=== PATIENT | female | born 1970 | race Caucasian/White ===

== ENCOUNTER → 2024-06-17 07:57 | Outpatient (BNVA) | payer OTHER, SELFPAY | PROVIDERS: Visit Provider Physician Assistant Medical | DX: Z13.89 Encounter for screening for other disorder (principal) | CPT/HCPCS: 92002; 99203 ==

== ENCOUNTER 2024-08-17 14:02 | Outpatient (AMB) | payer OTHER, SELFPAY ==
--- NOTE | 2024-08-17 14:07 | MHC.OFFVIS ---
Vital Signs 08/17/24 14:14 Height 5 ft 5 in Weight 194 lb 7.163 oz BMI 32.4 BP 148/80 H Blood Pressure Location Rt brachial Position Sitting Pulse 106 H Pulse Source Pulse Oximeter Pulse Oximetry (%) 98 Oxygen Delivery Method Room Air Intake Visit Reasons: [facility] screening Intake Note: NEW PATIENT Reason; Initial colo screening Prior hx of colo/egd? None Concerns/Questions? No significant GI concerns. Allergies No Known Allergies Allergy (Unverified 08/17/24 14:13) HPI HPI [facility] screening: Details: 54 year old? female is here today for pre colonoscopy screening.? Patient was sent to us by her PCP.? This is her first colonoscopy screening.? Patient denies any gastrointestinal symptoms in the past or at present.? Denies any personal or family history of gastrointestinal disease, colon polyps, or CRC.? Denies history of difficulty with sedation or anesthesia in the past.? Negative for history of sleep apnea.? Denies any history of cardiac, renal, pulmonary, or hepatic disease.?? No history of infectious? diseases like hepatitis A, B, C, HIV or tuberculosis.? Patient is not on any anticoagulation [facility] Surgical History H/O abdominal surgery History of salpingo-oophorectomy History of total hysterectomy Review of Systems Const Denies weight gain and Denies weight loss ENT Reports no additional complaints, Denies dysphagia and Denies odynophagia Card Reports no additional complaints Resp Reports no additional complaints GI Denies abdominal pain, Denies belching, Denies melena, Denies bloating, Denies change in bowel habits, Denies dysphagia, Denies excessive flatus, Denies dyspepsia, Denies heartburn, Denies diarrhea, Denies loose stools, Denies nausea, Denies odynophagia and Denies vomiting Musc Reports no additional complaints Neuro Reports no additional complaints Psych Reports no additional complaints Endo Reports no additional complaints Physical Exam Vital Signs: Last Vital Signs Pulse 106 H 08/17/24 14:14 BP 148/80 H 08/17/24 14:14 Pulse Ox 98 08/17/24 14:14 Oxygen Delivery Method Room Air 08/17/24 14:14 BMI result Body Mass Index 32.4 Const General: healthy appearing and no acute distress Nutritional Appearance: obese Orientation/consciousness: patient oriented x3 Resp Effort & Inspection: normal respiratory effort, able to speak in complete sentences, no tracheal deviation and symmetric chest movement Auscultation: clear to auscultation bilaterally Cardio Rate: regular rate GI Inspection: Yes normal to inspection, No distended and Yes obesity Palpation (GI): Soft to palpation, not firm, nontender and No hepatosplenomegaly present Auscultation: normal bowel sounds General: Yes no CVA tenderness Back/Spine/Pelvis Back: no CVA tenderness Skin General skin exam: elasticity normal, turgor normal and dry skin Neuro General: patient oriented x3 Psych Appearance: grossly normal Mental Status: mental status grossly normal Assessment & Plan Assessment & Plan (1) Screen for colon cancer: Code(s): Z12.11 - Encounter for screening for malignant neoplasm of colon Plan Patient denies any GI, cardiac or respiratory symptoms.? Denies any issues with anesthesia in the past.? Denies any history of sleep apnea.? No history infectious diseases in the past or present.? Not on any anticoagulation therapy.? No family or personal history of colon cancer or polyps.? Patient denies melena, hematochezia, unintentional weight loss or ribbon like stools.? Discussed at length the pre-procedure,? prep, diet & medications as well as what to expect prior, during and after the procedure.?? Stressed the importance of good bowel prep.? Recommended the use of Vaseline or Calmoseptine OTC & baby wipes with bowel movements to promote comfort.? ?Patient verbalizes understanding and agrees to plan of care.? She was given the opportunity to ask questions and all questions answered.? We will see her after the procedure.? Medications: New polyethylene glycol 3350 (Miralax) As directed by gastroenterology department at [facility] 238 grams PO ONCE 238 grams 0RF Z12.11 - Encounter for screening for malignant neoplasm of colon bisacodyl (Dulcolax (bisacodyl)) take 4 tabs at noon the day before your colonoscopy 20 mg (4 x 5 mg) PO ONCE 4 tabs 0RF 1 day Z12.11 - Encounter for screening for malignant neoplasm of colon Coding Level of Care Code New Pt Level 3 (99283) Diagnoses Screen for colon cancer Z12.11 Time Spent (min) 40 Comment 30 minutes spent with patient and additional 10 minutes spent reviewing her records
[2024-08-17 14:14] VITALS: BP 148/80; PULSE 106; O2SAT 98; BMI 32.4
== END 2024-08-17 15:34 | disposition home or self-care (01) ==
PROVIDERS: Visit Provider Nurse Practitioner Family
DX: Z01.818 Encounter for other preprocedural examination (principal); Z12.11 Encounter for screening for malignant neoplasm of colon
CPT/HCPCS: S0285

== ENCOUNTER → 2024-08-17 14:02 | Outpatient (BNVA) | payer OTHER, SELFPAY | PROVIDERS: Visit Provider Nurse Practitioner Family ==

== ENCOUNTER 2024-10-06 14:19 | Outpatient (AMB) | payer OTHER, SELFPAY ==
--- NOTE | 2024-10-06 14:22 | A.OFFPC_ITS ---
Vital Signs 10/06/24 14:29 Height 5 ft 3.25 in Weight 197 lb BMI 34.6 BP 136/72 Blood Pressure Location Rt brachial Pulse 111 H Pulse Source Pulse Oximeter Temp 97.1 F Pulse Oximetry (%) 96 Intake Visit Reasons: physical Intake Note: no other issues Allergies No Known Allergies Allergy (Verified 10/06/24 15:15) Medication List - Last Reconciled 10/06/24 by Opal Moncada PA-C bisacodyl (Dulcolax (bisacodyl)) 20 mg (4 x 5 mg) PO ONCE 1 day clobetasol 0.025% 1 appl topical BEDTIME clobetasol 0.05% 1 g topical BID multivitamin 1 tab PO DAILY polyethylene glycol 3350 (Miralax) 238 grams PO ONCE PFSH Medical History (Updated 10/06/24 @ 16:50 by Opal Moncada PA-C) Epileptic seizure Lichen sclerosus History of mammogram (~2023) History of ovarian cancer Establishing care with new doctor, encounter for Tachycardia Surgical History (Updated 10/06/24 @ 16:48 by Opal Moncada PA-C) History of hysterectomy H/O abdominal surgery History of salpingo-oophorectomy History of total hysterectomy Physical exam (Primary Care) Vital Signs: Last Vital Signs Temp 97.1 F 10/06/24 14:29 Pulse 111 H 10/06/24 14:29 BP 136/72 10/06/24 14:29 Pulse Ox 96 10/06/24 14:29 Care Plan Goal for BP management: <130/80 at goal BMI result Body Mass Index 34.6 BMI Assessment/Plan discussion: High BMI High, discussed plan: lifestyle, weight reduction, dietary, physical activity and alcohol moderation Office Procedures EKG Details: EKG normal sinus rhythm with a ventricular rate of 102. Normal QRS normal QT/QTC interval. No acute ischemic change are noted. Dr. Gordillo reviewed this EKG and agreed. [id number], Complete Coding Level of Care Code New Pt Prev Care 40-64y(52474) Diagnoses Establishing care with new doctor, encounter for Z76.89 Tachycardia R00.0 Lichen sclerosus L90.0 CPT Codes EKG - CPT: 26091-[id number], Complete ([id number]) Assessment & Plan Assessment & Plan (1) Establishing care with new doctor, encounter for: Code(s): Z76.89 - Persons encountering health services in other specified circumstances Category: Medical Plan: Patient had a normal exam today. (2) Tachycardia: Code(s): R00.0 - Tachycardia, unspecified Category: Medical Plan: Patient has sinus tachycardia. EKG obtained and revealed a ventricular rate of 102 milliseconds. Normal QRS normal QT/QTC interval. No acute ischemic change are noted. Verified with Dr. Gordillo. No STEMI or ischemia was noted. Patient will have fasting labs which include TSH level to evaluate thyroid function for possible cause of tachycardia. Condition is chronic and stable continue to monitor. (3) Lichen sclerosus: Code(s): L90.0 - Lichen sclerosus et atrophicus Category: Medical Plan: Patient to continue clobetasol ointment as contact as needed. Condition is chronic and stable continue to monitor. Plan Plan Patient was informed and verbally consented to the use of an ambient scribe for clinic note documentation during this visit. 1. Postmenopausal Weight Gain Plan: Ongoing management focuses on maintaining balanced nutrition and awareness of gastrointestinal concerns. Acknowledgement of weight management aligned with lifestyle modifications. 2. Anxiety Disorder Plan: We discussed the role anxiety may play in the patient's elevated heart rate and will monitor it alongside cardiac evaluation. Non-pharmacological strategies were introduced without initiating medication at this stage. 3. Tachycardia Plan: We will conduct comprehensive lab work to assess thyroid function and overall health parameters. An EKG will be completed to analyze cardiac rhythm and rule out additional causes. Patient instructions on symptom monitoring and signs requiring urgent care were given. 4. Lichen Sclerosus Plan: The patient remains on topical clobetasol, with advisement to maintain her current regimen and monitor symptoms. 5. 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 6. Epilepsy Plan: Historical epilepsy was documented with consideration that no recent episodes have occurred. Discussion Notes I engaged the patient in a detailed conversation about her health status and our immediate goals of ruling out potential thyroid issues to determine the cause of her tachycardia. Blood work and an EKG are necessary steps, with an understanding of needing thorough evaluations to ensure her heart rate returns to baseline often without incident. Management decisions for anxiety were reserved pending outcome assessments, emphasizing continued observation of general wellbeing. We discussed the importance of health maintenance, particularly in relation to her history of cancer, emphasizing adherence to regular screening schedules. I also highlighted potential dietary modifications to address her GI symptoms associated with satiety and bloating, underscoring the benefit of ensuring a balanced, nutritionally rich intake. Orders: Orders Complete Blood Count Auto Diff Today Z00.00 - Encounter for general adult m edical examination without abnormal findings Hemoglobin A1c Today Z00.00 - Encounter for general adult medical examination without abnormal findings Vitamin B1 Today Z00.00 - Encounter for general adult medical examination without abnormal findings TSH reflex Free T4 Today Z00.00 - Encounter for general adult medical examination without abnormal findings C Reactive Protein Today Z00.00 - Encounter for general adult medical examination without abnormal findings Comprehensive [place]. Panel Fast Today Z00.00 - Encounter for general adult medical examination without abnormal findings Lipid Panel Today Z00.00 - Encounter for general adult medical examination without abnormal findings Magnesium Today Z00.00 - Encounter for general adult medical examination without abnormal findings Liver Panel Today Z00.00 - Encounter for general adult medical examination without abnormal findings Vitamin D 25-OH Total Today Z00.00 - Encounter for general adult medical examination without abnormal findings Vitamin B12 and Folate Today Z00.00 - Encounter for general adult medical examination without abnormal findings AMB EKG-In Office Today R00.0 - Tachycardia, unspecified Medications: New clobetasol 0.05% 1 g topical BID 60 grams 1RF Patient Instructions: Patient Instructions - Undergo lab tests and EKG as discussed to investigate causes of tachycardia. - Monitor for any symptoms of excessive heart rate or chest pain, seek immediate care if they occur. - Maintain your current use of topical clobetasol for lichen sclerosus. - Continue with regular follow-up appointments regarding your history of cancer. - Consider mild dietary adjustments to alleviate quick fullness and bloating. - Follow up for any persistent or new symptoms potentially related to anxiety. - Arrange ophthalmology evaluation without delay. Scribe Plan - Not visible on output: History of Present Illness The patient is a 54-year-old female presenting to establish care with a primary care provider for a wellness examination. Recently, she has experienced an elevated and rapid heart rate, which she attributes to anxiety. The concern about potential thyroid dysfunction was discussed, as there have been no recent evaluations done. Despite experiencing occasional palpitations, she denies chest pains and expresses willingness to undergo essential lab work to assess these concerns. 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 She has epilepsy diagnosed in her adolescence, past management was not detailed during this visit. Lichen sclerosus is managed with topical clobetasol. The patient notes gradual weight gain post-menopause, recognizing symptoms of bloating and quick satiety during meals, though manageable for her current lifestyle. Her last mammogram occurred last year, demonstrating her willingness to engage in recommended screenings. 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 - Housing: Not discussed. - Exercise: Not discussed. - Functional Status: Engages in regular activities independently. Performs Activities of Daily Living (ADLs). - Level of Activity: Ability to work regularly. - Nutrition: Balanced diet with acknowledgment of quick satiation and bloating. - Weight Management: Reports gradual postmenopausal weight gain. Review of Systems - Cardiovascular: Reports occasional episodes of rapid heart rate. - Gastrointestinal: Denies vomiting. Reports sensation of rapid fullness and bloating. - Neurological: Denies current seizure activity. - General: Denies recent illness or significant changes in health. - Psychiatric: Reports anxiety impacting heart rate. Physical Exam Appearance: Alert. Oriented X3. No acute distress. Head: Normal external exam. Normocephalic. Atraumatic. Eyes: Pupils are equal, round, and reactive to light. Extraocular movements intact. Conjunctiva and sclera normal. Eyelids normal. Ears: External auditory canal normal. Tympanic membranes normal. Throat: Pharynx normal. Uvula midline. Moist mucous membranes. Neck: Normal inspection. Neck supple. Full range of motion. No adenopathy. Thyroid Normal. No meningeal signs. No neck mass noted. Cardiovascular: Heart rate is fast. Normal heart rhythm. Heart sound normal. No murmurs noted. Pulses normal throughout. Respiratory: No respiratory distress. Painless inspiration. Breath sounds normal. No wheezes/rales/rhonchi noted. Chest nontender. No accessory muscle usage noted or decreased air movement noted. Abdomen: Soft and nontender. Bowel sounds normal in all 4 quadrants. No distention noted. No organomegaly noted. No visible injury noted. Back: No costovertebral angle tenderness. Full range of motion noted. Skin: Skin warm and dry. Normal skin color. Normal skin turgor. No rashes/lesions/lacerations noted. Extremities: No lower extremity edema. Extremities exhibit normal range of motion. Extremities nontender. Neuro: Oriented X 3. No motor deficit. No sensory deficit. Reflexes normal.
[2024-10-06 14:29] VITALS: BP 136/72; PULSE 111; TEMP 36.2; O2SAT 96; BMI 34.6
== END 2024-10-06 15:16 | disposition home or self-care (01) ==
PROVIDERS: PCP Internal Medicine; Visit Provider Physician Assistant Medical
DX: Z00.00 Encounter for general adult medical examination without abnormal findings (principal); R00.0 Tachycardia, unspecified; L90.0 Lichen sclerosus et atrophicus; Z76.89 Persons encountering health services in other specified circumstances

== ENCOUNTER → 2024-10-06 14:19 | Outpatient (BNVA) | payer OTHER, SELFPAY | PROVIDERS: PCP Internal Medicine; Visit Provider Physician Assistant Medical | DX: Z76.89 Persons encountering health services in other specified circumstances (principal); R00.0 Tachycardia, unspecified; L90.0 Lichen sclerosus et atrophicus; R63.5 Abnormal weight gain; Z68.34 Body mass index [BMI] 34.0-34.9, adult | CPT/HCPCS: 93005 ==

== ENCOUNTER 2024-10-08 06:10 | Outpatient (REF) | payer OTHER, SELFPAY ==
[2024-10-08 06:32] LABS: MANUAL DIFF FLAG NO
[2024-10-08 07:30] LABS: Basophils Percent Auto 0.7 % (0-2); Eosinophils Absolute Auto 0.2 X10*3/uL (0.0-0.4); Eosinophils Percent Auto 2.6 % (0-4); Hematocrit 40.1 % (37.0-47.0); Hemoglobin 13.4 g/dl (12.0-16.0); Imm Gran Abs Auto 0.02 X10*3/uL (0.00-0.03); Imm Gran Pct Auto 0.3 % (0.0-0.4); Lymphocytes Absolute Auto 1.6 X10*3/uL (1.2-4.9); Lymphocytes Percent Auto 27.6 % (20-40); Mean Corpuscular HGB Conc 33.4 g/dl (31.0-35.0); Mean Corpuscular Hemoglobin 31.2 pg (27.0-33.0); Mean Corpuscular Volume 93.3 fL (80.0-98.0); Mean Platelet Volume 9.8 fL (9.4-12.3); Monocytes Absolute Auto 0.5 X10*3/uL (0.1-1.2); Monocytes Percent Auto 7.9 % (2-11); Neutrophils Absolute Auto 3.6 x10*3/uL (2.0-8.3); Neutrophils Percent Auto 60.9 % (45-73); Platelet Count 266 X10*3/uL (160-400); Red Cell Distribution Width 13.2 % (11.0-16.0); White Blood Count 5.8 X10*3/uL (4.8-10.8)
[2024-10-08 07:38] LABS: Estimated Average Glucose 105 mg/dL; Hemoglobin A1c % 5.3 % (<6.0)
[2024-10-08 07:57] LABS: Alanine Aminotransferase 58 U/L (0-31); Albumin Level 4.1 g/dL (3.5-5.0); Alkaline Phosphatase 122 U/L (39-117); Anion Gap 11 (12-20); Aspartate Amino Transferase 37 U/L (5-31); Bilirubin Direct 0.2 mg/dL (0.0-0.5); Bilirubin Total 0.5 mg/dL (0.0-1.0); Blood Urea Nitrogen 16 mg/dL (9-16); C Reactive Protein 0.59 mg/dL (< or = 0.50); Calcium 9.4 mg/dL (8.4-10.2); Carbon Dioxide 26 mmol/L (22-29); Chloride 106 mmol/L (96-108); Cholesterol 246 mg/dL (<200); Estimated Glomerular Filt Rate > 60; Glucose Fasting 96 mg/dL (60-99); HDL Cholesterol 64 mg/dL (>40); LDL Cholesterol Calculated 153 mg/dL (<100); Magnesium 1.9 mg/dL (1.6-2.6); Potassium 4.1 mmol/L (3.3-5.1); Sodium 139 mmol/L (135-145); Total Protein 7.6 g/dL (6.5-8.0); Triglycerides 147 mg/dL (<150)
[2024-10-08 08:13] LABS: TSH reflex Free T4 1.41 uIU/mL (0.32-4.0); Vitamin D 25-OH Total 41.6 ng/mL (>30)
[2024-10-08 08:29] LABS: Folate 16.6 ng/mL (> or = 4.0); Vitamin B12 845 pg/mL (200-900)
[2024-10-17 11:44] LABS: Vitamin B1 14 nmol/L (8-30)
== END 2024-10-08 06:11 | disposition home or self-care (01) ==
LOC: HO.LAB 06:10
PROVIDERS: PCP Physician Assistant Medical; Visit Provider Physician Assistant Medical
DX: Z00.00 Encounter for general adult medical examination without abnormal findings (principal)
CPT/HCPCS: 36415; 80053; 80061; 80076; 82248; 82306; 82607; 82746; 83036; 83735; 84425; 84443; 85025; 86140

== ENCOUNTER 2024-10-28 08:17 | Day surgery (SDC) | payer OTHER, SELFPAY ==
[2024-10-26 10:51] VITALS: BMI 32.3
--- NOTE | 2024-10-27 08:29 | HO.ANESPROP2 ---
Documented by User: Celena Sullivan NP 10/27/24 08:29 HPI - Anesthesia Eval Consult details Narrative: 54yo F for Colonoscopy ERBE Jet 2 PMFSH Active Problems Active Problems: All Active Problems Lichen sclerosus (Acute) Establishing care with new doctor, encounter for (Acute) Tachycardia (Acute) Past Medical History Medical History Epileptic seizure Lichen sclerosus History of mammogram (~2023) History of ovarian cancer Establishing care with new doctor, encounter for Tachycardia Surgical History Surgical History History of hysterectomy H/O abdominal surgery Social History Social History Patient Tobacco Use Status: Former Tobacco user Use of substances other than those prescribed or required for medical reasons: No Are you DNR?: No Advance Directives: No Advance Directives Information Provided: Yes Meds Allergies Allergy/AdvReac Type Severity Reaction Status Date / Time No Known Allergies Allergy Verified 10/28/24 08:46 Home Medications ?Medication ?Instructions ?Recorded ?Confirmed ?Last Taken ?Type clobetasol 0.025 % topical cream 1 appl topical BEDTIME 08/17/24 10/28/24 Unknown History multivitamin 1 tab PO DAILY 08/17/24 10/28/24 Unknown History Exam Height,Weight and Vital Signs: Height 5 ft 5 in Weight 87.997 kg Narrative Narrative: EKG 09/2024 Details: EKG normal sinus rhythm with a ventricular rate of 102. Normal QRS normal QT/QTC interval. No acute ischemic change are noted. Assessment and Plan Assessment Anesthesia Assessment: Chart Reviewed Documented by User: Chantel Vázquez MD 10/28/24 10:16 PMFSH Past Medical History Medical History Epileptic seizure Lichen sclerosus History of mammogram (~2023) History of ovarian cancer Establishing care with new doctor, encounter for Tachycardia Family History Family history of problems with anesthesia: No Surgical History Surgical History History of hysterectomy H/O abdominal surgery History of Problems with Anesthesia: No Social History Social History Patient Tobacco Use Status: Former Tobacco user Use of substances other than those prescribed or required for medical reasons: No Are you DNR?: No Advance Directives: No Advance Directives Information Provided: Yes Meds Allergies Allergy/AdvReac Type Severity Reaction Status Date / Time No Known Allergies Allergy Verified 10/28/24 08:46 Home Medications ?Medication ?Instructions ?Recorded ?Confirmed ?Last Taken ?Type clobetasol 0.025 % topical cream 1 appl topical BEDTIME 08/17/24 10/28/24 Unknown History multivitamin 1 tab PO DAILY 08/17/24 10/28/24 Unknown History Exam Airway Mallampati Class: II TM Dist: >3cm Neck ROM: Full Assessment and Plan Assessment Anesthesia Assessment: Anesthesia Plan Discussed Final Anesthetic Review Family History of Problems with Anesthesia: No History of Problems with Anesthesia: No NPO: Yes ASA Class: II Final Preanesthetic Review: No Changes in Pt Med Stat, Meds/Allgs Chart Reviewed, Consent Obtained/Reviewed and Anes Risks/Benef Reviewed Patient Risk: Low Procedure Risk: Low Anesthetic Plan Anesthetic Plan: TIVA Disposition: Standard PACU
[2024-10-28 08:46] VITALS: BMI 31.3
[2024-10-28 08:50] VITALS: BP 143/63; PULSE 95; RESP 15; TEMP 36.4; O2SAT 97
[2024-10-28] MEDS: Lactated Ringers 1,000 ML 100 ML IVCONT (09:07)
--- NOTE | 2024-10-28 09:12 | MHC.SHP ---
Pre-Procedural Eval Section A - 24 Hr Update-Section A only Date of Service: 10/28/24 Section B - Complete if H&P > 30 days Chief Complaint: screening Details of Present Illness: H/O abdominal surgery History of salpingo-oophorectomy History of total hysterectomy Present Medications: see Short Stay Collaborative assessment Allergies: Allergies Allergy/AdvReac Type Severity Reaction Status Date / Time No Known Allergies Allergy Verified 10/28/24 08:46 Review of Systems Review of Systems Comment: 10 point ROS negative Exam Exam Comment: Gen appear: No acute distress HEENT: no icterus Chest: No overt resp distress Abd: soft, nontender, nondistended Psych: Stable affect, answering questions appropriately Neuro: A/Ox3 noted to move all extremities spontaneously Ext: no peripheral edema Plan Diagnosis/Plan: Unchanged I have reviewed the history and physical and performed a pertinent physical examination on my patient. No changes have occurred unless specified. Time Spent With Patient Time: Total time managing care of this patient today ____ minutes.
--- NOTE | 2024-10-28 09:57 | P.OPN-COLO_ITS ---
Colonoscopy Operative Note Operative Note Date of Service: 10/28/24 Narrative: Procedure: Colonoscopy Indication: Screening Endoscopist: Jessica Desir MD Anesthesia Provider: Dr Chantel Vázquez Anesthesia type: MAC Instrument: Olympus [id number]-[id number] Consent: Indication, risks vs benefits, and alternatives were discussed with the patient who gave written informed consent to proceed. EKG, pulse, pulse oximetry and blood pressure were monitored throughout the procedure. Please see anesthesia flowsheet. Procedure: The patient was brought to the procedure room and placed in the left lateral decubitus position. IV medications were administered by the anesthesia provider in attendance. A digital rectal exam was performed which was abnormal for external hemorrhoids. A distal attachment cap was affixed to the tip of the colonoscope which was then inserted through the anus and advanced through the colon to the cecum at 75 cm,and terminal ileum. Appendiceal orifice and ileocecal valve were identified. Mucosa was carefully examined under high definition white light as the instrument was slowly withdrawn in a retrograde panoramic fashion. Retroflexion was performed in rectum. The procedure was not difficult. There were no immediate obvious complications. The quality of the prep was BBPS: 3+2+3 = adequate Withdrawal time 12 minutes. Limitations: No limitations. Findings: Mucosa: Normal to cecum and terminal ileum. Protruding lesions: * 1 sessile polyp of size 2 mm in sigmoid colon. Cold snare polypectomy was performed. The polyp was completely removed and retrieved. * Medium internal hemorrhoids without stigmata of recent bleeding. Excavated lesions: * Moderate to severe diverticulosis of left sided colon. Impression: 1. Normal colon mucosa 2. Total of 1 polyp removed 3. Diverticulosis 4. External and internal hemorrhoids Recommendations: - Follow path results. - Repeat colonoscopy in 7-10 years if polyp is an adenoma
[2024-10-28 10:29] VITALS: BP 111/51; PULSE 82; RESP 15; TEMP 36.5; O2SAT 99
[2024-10-28 10:34] VITALS: BP 120/66; PULSE 82; RESP 15; O2SAT 98
[2024-10-28 10:53] VITALS: BP 128/57; PULSE 80; RESP 18; O2SAT 98
== END 2024-10-28 11:10 | disposition home or self-care (01) ==
PROVIDERS: PCP Physician Assistant Medical; Visit Provider Internal Medicine
PROC: (CPT 45385; principal; 2024-10-28 10:30)
DX: Z12.11 Encounter for screening for malignant neoplasm of colon (principal); K63.5 Polyp of colon; K57.30 Diverticulosis of large intestine without perforation or abscess without bleeding; K64.4 Residual hemorrhoidal skin tags; Z98.890 Other specified postprocedural states; L90.0 Lichen sclerosus et atrophicus; G40.909 Epilepsy, unspecified, not intractable, without status epilepticus; R00.0 Tachycardia, unspecified; Z85.43 Personal history of malignant neoplasm of ovary; Z79.899 Other long term (current) drug therapy; Z87.891 Personal history of nicotine dependence
CPT/HCPCS: 45385; 88305; J2003; J2704

== ENCOUNTER → 2024-10-28 08:17 | Outpatient (BNV) | payer OTHER, SELFPAY | PROVIDERS: PCP Physician Assistant Medical; Visit Provider Internal Medicine | DX: Z12.11 Encounter for screening for malignant neoplasm of colon (principal); K63.5 Polyp of colon; K57.30 Diverticulosis of large intestine without perforation or abscess without bleeding; K64.8 Other hemorrhoids | CPT/HCPCS: 45385 ==

== ENCOUNTER → 2024-12-31 07:40 | Outpatient (BNVA) | payer OTHER, SELFPAY | PROVIDERS: PCP Physician Assistant Medical; Visit Provider Internal Medicine | DX: Z13.89 Encounter for screening for other disorder (principal) | CPT/HCPCS: 73110; 99203 ==

== ENCOUNTER → 2025-01-05 08:11 | Outpatient (BNVA) | payer OTHER, SELFPAY | PROVIDERS: PCP Physician Assistant Medical; Visit Provider Internal Medicine | DX: Z13.89 Encounter for screening for other disorder (principal) | CPT/HCPCS: 99213 ==

== ENCOUNTER → 2025-01-10 09:05 | Outpatient (BNVA) | payer OTHER, SELFPAY | PROVIDERS: PCP Physician Assistant Medical; Visit Provider Internal Medicine | DX: Z13.89 Encounter for screening for other disorder (principal) | CPT/HCPCS: 99213 ==

== ENCOUNTER 2025-04-06 09:11 | Outpatient (AMB) | payer OTHER, SELFPAY ==
--- NOTE | 2025-04-06 09:29 | A.OFFPC_ITS ---
Vital Signs 04/06/25 09:42 Height 5 ft 4.96 in Weight 189 lb BMI 31.5 BP 138/63 Respiration 16 Pulse 92 Pulse Source Pulse Oximeter Temp 98.1 F Temp Source Temporal Artery Scan Pulse Oximetry (%) 97 Oxygen Delivery Method Room Air Intake Visit Reasons: 6 month f/u Employee Relations Assistant Required: No Accompanied by: Self / Same As Patient Allergies No Known Allergies Allergy (Verified 04/06/25 09:51) Medication List - Last Reconciled 04/06/25 by Opal Moncada PA-C clobetasol 0.05% 1 g topical BID multivitamin 1 tab PO DAILY Tobacco use date assessed: 04/06/25 Dental Screening Dental Screen Date: 04/06/25 Did you have a dental visit in the last 12 months?: No Did you have a dental problem in the last 6 months where you did not have access to dental care?: No HPI 6 month f/u HPI Details The patient is a 55-year-old female presenting with a annual physical examination and management of chronic sinusitis. The patient reports experiencing sinus issues for several years, characterized by sinus pressure around the eyes and occasional dizziness, particularly during seasonal changes. She has tried [id number] medications with limited success and currently does not feel it is a sinus infection. The patient was advised to use Lyndsey and Flonase daily to manage symptoms. The patient has a history of hypercholesterolemia, with a total cholesterol level of 246 mg/dL and LDL cholesterol at 153 mg/dL. She previously took a statin for a month but discontinued due to concerns about potential liver effects. The patient is interested in managing cholesterol through dietary changes and requested information on dietary modifications. The patient has osteoarthritis in her thumb, confirmed by an X-ray after a fall at work. She experiences occasional pain but does not require physical therapy at this time. The patient underwent a hysterectomy due to a borderline cancerous cyst and sees an oncologist every six months for follow-up. She is scheduled for a mammogram, which is typically ordered by her oncologist. The patient had a colonoscopy on October 28, 2024, where a polyp was found but no further issues were noted. She is relieved to have a 10-year interval before the next procedure due to the challenging preparation process. 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 - Family Status: Engaged to a 37-year-ol kassy page?. [facility] Medical History (Updated 04/06/25 @ 10:12 by Opal oMncada PA-C) Class 1 obesity with body mass index (BMI) of 31.0 to 31.9 in adult Osteoarthritis of thumb Pure hypercholesterolemia, unspecified Annual physical exam Chronic sinus complaints Epileptic seizure Lichen sclerosus History of mammogram (~2023) History of ovarian cancer Establishing care with new doctor, encounter for Tachycardia Surgical History (Updated 04/06/25 @ 09:59 by Opal Moncada PA-C) History of colonoscopy (~10/28/24) History of hysterectomy H/O abdominal surgery Family History Father Heart disease BP (high blood pressure) Mother No problems noted. Social History Housing: House Alcohol intake: current Alcohol intake frequency: does not drink Patient Tobacco Use Status: Former Tobacco user service: No Current occupational status: employed Cognitive needs: No Hearing needs: No Vision needs: Yes (reading glasses) Questionnaire PHQ-9 Over the last 2 weeks, how often have you been bothered by any of the following problems? 1. Little interest or pleasure in doing things: not at all 2. Feeling down, depressed, or hopeless: not at all 3. Trouble falling or staying asleep, or sleeping too much: not at all 4. Feeling tired or having little energy: not at all 5. Poor appetite or overeating: not at all 6. Feeling bad about yourself - or that you are a failure or have let yourself or your family down: not at all 7. Trouble concentrating on things, such as reading the newspaper or watching television: not at all 8. Moving or speaking so slowly that other people could have noticed. Or the opposite - being so fidgety or restless that you have been moving around a lot more than usual: not at all 9. Thoughts that you would be better off or of hurting yourself in some way: not at all Total score: 0 Depression Screening Interpretation: Negative Depression Screening Done: Yes 33490 - PHQ-9 Billing: Yes Source: Developed by Drs. Paul L. AltaUrmila hayes, Pablo Dejesus and colleagues, with an educational kaushal from [employer]. Thrive Questionnaire Date Thrive assessed: 04/06/25 I am a: Patient What is your living situation today?: I have a steady place to live Within the past 12 months, did the food you bought not last and you didn't have the money to get more?: Never true Within the past 12 months, did you worry whether your food would run out before you got money to buy more?: Never true Do you have trouble paying for medicines?: No Do you have trouble getting transportation to medical appointments?: No Do you have trouble paying your heating and electricity bill?: No Do you have trouble taking care of your child, family member or friend?: No Do you have trouble with day-to-day activities such as bathing, preparing meals, shopping, managing finances, etc.?: No Are you currently unemployed and looking for a job?: No Are you interested in more education?: No Please select the resources that you would like help with: None THRIVE Score: 0 AUDIT C Alcohol Use Questionnaire (AUDIT-C) 1. How often do you have a drink containing alcohol?: Never 3. How often do you have six or more drinks on one occasion?: Never Total Score: 0 Score Reviewed/Action Taken: No NAVIN-7 AMB Questionnaire NAVIN-7 Date NAVIN - 7 assessed: 04/06/25 Feeling nervous, anxious, or on edge: 1 = Several days Not being able to stop or control worryin = Several days Worrying too much about different things: 1 = Several days Trouble relaxin = Not at all Being so restless that it is hard to sit still: 0 = Not at all Becoming easily annoyed or irritable: 1 = Several days Feeling afraid as if something awful might happen: 1 = Several days Total NAVIN-7 score (0-4 normal; 5-9 mild; 10-14 moderate; 15-21 severe): 5 Source: Developed by Drs. Paul Holm, Pablo Chen and colleagues, with an educational kaushal from [employer]. NAVIN-7 Assessment Billing NAVIN-7 Assessment Tool: NAVIN-7 Assessment 54927 Review of Systems Const Details: - Respiratory: Denies cough, chest pain, or shortness of breath. - Neurological: Reports occasional dizziness associated with sinus pressure. - Musculoskeletal: Reports occasional pain in the thumb due to osteoarthritis. All systems reviewed & are unremarkable except as noted in HPI and below Physical exam (Primary Care) Vital Signs: Last Vital Signs Temp 98.1 F 04/06/25 09:42 Pulse 92 04/06/25 09:42 Resp 16 04/06/25 09:42 BP 138/63 04/06/25 09:42 Pulse Ox 97 04/06/25 09:42 Oxygen Delivery Method Room Air 04/06/25 09:42 Care Plan Goal for BP management: <140/90 at Goal BMI result Body Mass Index 31.5 BMI Assessment/Plan discussion: High BMI High, discussed plan: lifestyle, weight reduction, dietary, physical activity, alcohol moderation and other Tobacco/Smoking Status: Tobacco use Status Tobacco use date assessed 04/06/25 04/06/25 09:32 Patient Tobacco Use Status Former Tobacco user 04/06/25 09:46 PHQ-9: PHQ-9 Score PHQ-9: Total score 0 04/06/25 09:48 Depression Screening Interpretation: Negative Thrive Assessment: Date of Thrive Assessment Date Thrive assessed 04/06/25 04/06/25 09:32 Const Other: Appearance: Alert. Oriented X3. No acute distress. Head: Normal external exam. Normocephalic. Atraumatic. Eyes: Pupils are equal, round, and reactive to light. Extraocular movements intact. Conjunctiva and sclera normal. Eyelids normal. Ears: External auditory canal normal. Tympanic membranes normal. Throat: Pharynx normal. Uvula midline. Moist mucous membranes. Neck: Normal inspection. Neck supple. Full range of motion. No adenopathy. Thyroid Normal. No meningeal signs. No neck mass noted. Cardiovascular: Normal heart rate and rhythm. Heart sound normal. No murmurs noted. Pulses normal throughout. Respiratory: No respiratory distress. Painless inspiration. Breath sounds normal. No wheezes/rales/rhonchi noted. Chest nontender. No accessory muscle usage noted or decreased air movement noted. Abdomen: Soft and nontender. Bowel sounds normal in all 4 quadrants. No distention noted. No organomegaly noted. No visible injury noted. Back: No costovertebral angle tenderness. Full range of motion noted. Skin: Skin warm and dry. Normal skin color. Normal skin turgor. No rashes/lesions/lacerations noted. Extremities: No lower extremity edema. Extremities exhibit normal range of motion. Extremities nontender. Sprained wrist noted with occasional pain; arthritis noted in thumb. Neuro: Oriented X 3. No motor deficit. No sensory deficit. Reflexes normal. Results Reviewed Results Reviewed: - Labs: Total cholesterol 246 mg/dL, LDL cholesterol 153 mg/dL, HDL cholesterol 64 mg/dL. - Procedures: Colonoscopy on October 28, 2024, with polyp found but no further issues. Coding Level of Care Code Est Pt Level 4 (44666) Est Pt Prev Care 40-64y(51605) Diagnoses Annual physical exam Z00.00 Chronic sinus complaints R09.89 Pure hypercholesterolemia, unspecified E78.00 Osteoarthritis of thumb M18.10 Class 1 obesity with body mass index (BMI) of 31.0 to 31.9 in adult E66.811; Z68.31 Additional Codes PHQ-9 - 71629 - PHQ-9 Billing: Yes ([id number]) NAVIN-7 Assessment Billing - NAVIN-7 Assessment Tool: NAVIN-7 Assessment 31417 ([id number]) Assessment & Plan Assessment & Plan (1) Annual physical exam: Code(s): Z00.00 - Encounter for general adult medical examination without abnormal findings Category: Medical Plan: Normal physical examination today. (2) Chronic sinus complaints: Code(s): R09.89 - Other specified symptoms and signs involving the circulatory and respiratory systems Category: Medical Plan: The patient will start daily Lyndsey and Flonase to manage chronic sinusitis symptoms, particularly sinus pressure and occasional dizziness. A referral to an ENT specialist was discussed for further evaluation, although the appointment may take several months to schedule. (3) Pure hypercholesterolemia, unspecified: Code(s): E78.00 - Pure hypercholesterolemia, unspecified Category: Medical Plan: The patient expressed interest in managing hypercholesterolemia through dietary changes and was provided with information on dietary modifications. Follow-up cholesterol testing is planned for September to assess progress. (4) Osteoarthritis of thumb: Code(s): M18.10 - Unilateral primary osteoarthritis of first carpometacarpal joint, unspecified hand Category: Medical Plan: The patient experiences occasional pain in the thumb due to osteoarthritis but does not require physical therapy at this time. (5) Class 1 obesity with body mass index (BMI) of 31.0 to 31.9 in adult: Code(s): E66.811 - Obesity, class 1; Z68.31 - Body mass index [BMI] 31.0-31.9, adult Category: Medical Plan: Patient to improve diet and exercise regimen. Condition is chronic and stable continue to monitor. Plan Plan Patient was informed and verbally consented to the use of an ambient scribe for clinic note documentation during this visit. 1. Chronic Sinusitis The patient will start daily Lyndsey and Flonase to manage chronic sinusitis symptoms, particularly sinus pressure and occasional dizziness. A referral to an ENT specialist was discussed for further evaluation, although the appointment may take several months to schedule. 2. Hypercholesterolemia The patient expressed interest in managing hypercholesterolemia through dietary changes and was provided with information on dietary modifications. Follow-up cholesterol testing is planned for September to assess progress. 3. Osteoarthritis Of The Thumb The patient experiences occasional pain in the thumb due to osteoarthritis but does not require physical therapy at this time. During the visit, we discussed the management of chronic sinusitis with Lyndsey and Flonase, and the possibility of an ENT referral for further evaluation. We also reviewed the patient's cholesterol levels and dietary management strategies, with a plan to reassess in September. The patient was informed about the osteoarthritis in her thumb and advised that physical therapy is not necessary at this time. Orders: Orders C Reactive Protein Today Z00.00 - Encounter for general adult medical examination without abnormal findings Complete Blood Count Auto Diff Today Z00.00 - Encounter for general adult medical examination without abnormal findings Comprehensive [place]. Panel Fast Today Z00.00 - Encounter for general adult medical examination without abnormal findings Hemoglobin A1c Today Z00.00 - Encounter for general adult medical examination without abnormal findings Liver Panel Today Z00.00 - Encounter for general adult medical examination without abnormal findings Lipid Panel Today Z00.00 - Encounter for general adult medical examination without abnormal findings Magnesium Today Z00.00 - Encounter for general adult medical examination without abnormal findings Vitamin B12 and Folate Today Z00.00 - Encounter for general adult medical examination without abnormal findings Vitamin D 25-OH Total Today Z00.00 - Encounter for general adult medical examination without abnormal findings TSH reflex Free T4 Today Z00.00 - Encounter for general adult medical examination without abnormal findings Referrals Ear/Nose/Throat Referral R09.89 - Other specified symptoms and signs involving the circulatory and respiratory systems Medications: New fluticasone propionate 50 mcg/actuation (Flonase Allergy Relief) administer into each nostril 1 spray intranasal BID 16 grams 3RF fexofenadine (Lyndsey Allergy) 180 mg PO DAILY 90 tabs 3RF Patient Instructions: - Take Lyndsey and Flonase daily to manage sinus symptoms. - Follow dietary recommendations to manage cholesterol levels. - Schedule a follow-up appointment in one year unless new symptoms arise.
[2025-04-06 09:42] VITALS: BP 138/63; PULSE 92; RESP 16; TEMP 36.7; O2SAT 97; BMI 31.5
== END 2025-04-06 10:07 | disposition home or self-care (01) ==
PROVIDERS: PCP Physician Assistant Medical; Visit Provider Physician Assistant Medical
DX: Z00.00 Encounter for general adult medical examination without abnormal findings (principal); R09.89 Other specified symptoms and signs involving the circulatory and respiratory systems; E78.00 Pure hypercholesterolemia, unspecified; E66.811 Obesity, class 1; Z68.31 Body mass index [BMI] 31.0-31.9, adult; M18.10 Unilateral primary osteoarthritis of first carpometacarpal joint, unspecified hand

== ENCOUNTER → 2025-04-06 09:11 | Outpatient (BNVA) | payer OTHER, SELFPAY | PROVIDERS: PCP Physician Assistant Medical; Visit Provider Physician Assistant Medical | DX: Z00.00 Encounter for general adult medical examination without abnormal findings (principal); R09.89 Other specified symptoms and signs involving the circulatory and respiratory systems; E78.00 Pure hypercholesterolemia, unspecified; M18.10 Unilateral primary osteoarthritis of first carpometacarpal joint, unspecified hand; E66.811 Obesity, class 1; Z68.31 Body mass index [BMI] 31.0-31.9, adult; Z13.31 Encounter for screening for depression; Z13.39 Encounter for screening examination for other mental health and behavioral disorders | CPT/HCPCS: 96127 ==